=== PATIENT | male | born 1960 | race Caucasian/White ===

== ENCOUNTER → 2016-12-04 | Outpatient (CLI) | payer OTHER ==
[~2016-12-04] MED LIST: ALL300 PO; DULO60CA44 PO; HYDR-5688 PO; MULT-506 PO
--- NOTE | 2016-12-04 14:38 | DIAGNOSTIC IMAGING REPORT ---
EXAMINATION: RENAL ULTRASOUND CLINICAL HISTORY: Flank pain. Family history of renal cell carcinoma. COMPARISON STUDY: None FINDINGS: The right kidney measures 11.2 cm. The left kidney measures 12.3 cm. There is no evidence of hydronephrosis. There is an 18 mm left renal cyst containing a single septation. There is borderline bladder wall thickening. Bilateral ureteral jets were visualized IMPRESSION : 1. No evidence of hydronephrosis 2. 18 mm left renal cyst containing a single septation 3. Borderline bladder wall thickening Electronically signed by: Niall Messer M.D. 12/04/2016 2:37 PM Dictated Date/Time: 12/04/2016 2:35 PM
[2016-12-04 14:54] LABS: BLOOD UREA NITROGEN 7 mg/dl (7-18); BUN/CREATININE RATIO 9.9 (10-20); CREATININE 0.72 mg/dl (0.60-1.40)
[2016-12-04 14:58] LABS: PROSTATE SPECIFIC ANTIGEN 0.469 ng/ml (0.000-4.000)
== END | disposition home or self-care (01) ==
LOC: C.ULTR 13:14
PROVIDERS: ATTEND Urology
DX: Z12.5 Encounter for screening for malignant neoplasm of prostate (principal); N28.1 Cyst of kidney, acquired

== ENCOUNTER → 2017-12-17 | Outpatient (CLI) | payer OTHER ==
--- NOTE | 2017-12-17 13:15 | DIAGNOSTIC IMAGING REPORT ---
RENAL ULTRASOUND CLINICAL HISTORY: Renal cyst. COMPARISON STUDY: Renal ultrasound December 04, 2016. TECHNIQUE: Sonography of the kidneys and the urinary bladder was performed. FINDINGS: The right kidney measures 11.6 x 5 x 5.8 cm and the left measures 12.3 x 5.3 x 6.2 cm. Renal echogenicity, size and cortical thickness are normal. No solid renal lesion is identified by sonography. A 2 cm anechoic lesion within the lower pole of the left kidney is similar to prior exam. This represents a cyst. Both ureteral jets were identified. Mild lateral wall thickening was noted. IMPRESSION: 1. 2 cm right renal cyst. 2. No hydronephrosis. 3. Mild bladder wall thickening, a nonspecific finding. Electronically signed by: Mitchell Dimas M.D. 12/17/2017 1:13 PM Dictated Date/Time: 12/17/2017 1:11 PM
== END | disposition home or self-care (01) ==
LOC: C.ULTR 12:06
PROVIDERS: ATTEND Urology
DX: N28.1 Cyst of kidney, acquired (principal)